=== PATIENT | female | born 1960 | race Caucasian/White ===

== ENCOUNTER 2019-08-30 09:47 | Emergency (ER) | payer MEDICAID ==
[~2019-08-30] VITALS: Ht 152.4 cm; Wt 71.7 kg
--- NOTE | 2019-08-30 09:50 | NUR ---
PT AMBULATED TO ER BED 11
[2019-08-30 10:01] VITALS: BP 140/91
[2019-08-30] MEDS ORDERED: ALBUTEROL SULFATE/IPRATROPIU 3 ML SOL IH ONE (10:20)
[2019-08-30] MEDS ORDERED: methylPREDNISolone SS 125 MG/2 ML VIAL IM ONE (10:20)
--- NOTE | 2019-08-30 10:25 | NUR ---
PT BIB FAMILY C/O SOB SINCE THIS MORNING AND CONSTANT NON-PRODUCTIVE COUGH SINCE MARCH. LUNG SOUNDS DIMINISHED BILATERALLY. MILD LABORED BREATHING NOTED. ON 2L NC O2 SATURATION 100%. IN BED FOR MD [place].
[2019-08-30 11:37] VITALS: BP 140/91
== END 2019-08-30 11:38 | disposition home or self-care (01) ==
LOC: MED 09:47
DX: J45.909 Unspecified asthma, uncomplicated (principal)
CPT/HCPCS: 94640; 96372; 99283; J2930; J7620